=== PATIENT | male | born 1965 | race Two or more races ===

== ENCOUNTER 2018-08-01 06:43 | Emergency (ER) | payer OTHER ==
[~2018-08-01] VITALS: Ht 170.2 cm; Wt 90.7 kg
--- NOTE | 2018-08-01 07:00 | NUR ---
Report given to Juliette GRANDA dayshift.
[2018-08-01] MEDS ORDERED: HYDROCODONE/APAP 5-325MG TABLET ONE (08:14)
[2018-08-01] MEDS ORDERED: HYDROCODONE/APAP 5-325MG TABLET PO ONE (08:15)
--- NOTE | 2018-08-01 08:25 | NUR ---
lapd at bedside.
--- NOTE | 2018-08-01 08:48 | NUR ---
Patient discharged to home in stable conditon. Written and verbal after care instructions given. Patient verbalizes understanding of instructions.pt walks in steady gait. pt accompanied by so.
[2018-08-01 08:53] VITALS: BP 121/79
== END 2018-08-01 08:55 | disposition home or self-care (01) ==
LOC: ER 06:45
DX: S20.211A Contusion of right front wall of thorax, initial encounter (principal); V49.9XXA Car occupant (driver) (passenger) injured in unspecified traffic accident, initial encounter; Y93.89 Activity, other specified; Y92.89 Other specified places as the place of occurrence of the external cause; Y99.8 Other external cause status
CPT/HCPCS: 71250; A4663